=== PATIENT | female | born 1935 | race Caucasian/White ===

== ENCOUNTER 2017-08-29 08:30 | Inpatient (IN) | payer OTHER ==
[2017-08-25 09:23] VITALS: BMI 28.0
--- NOTE | 2017-08-25 10:08 | PAT Medication Instructions ---
Service Date Aug 25, 2017. Current Home Medication List Aspirin (Aspirin Ec), 81 MG PO QPM Biotin (Biotin), 1 CAP PO QAM Cholecalciferol (Vitamin D3), 1 TAB PO QAM Diltiazem Hcl Ext Rel (Tiazac), 120 MG PO HS Fish Oil (Pringle-3), 1 CAP PO BID Hydrocodone-Acetaminophen (Lortab 5-325 mg), 0.5-1 TAB PO PRN PRN for Pain Levothyroxine Sodium (Levothyroxine Sodium), 1 TAB PO QAM Losartan Potassium (Cozaar), 100 MG PO HS Omeprazole (Prilosec), 20 MG PO QAM Probiotic Product (Probiotic), 1 TAB PO BID [Magnesium], 1 TAB PO BID Medication Instructions For Your Scheduled Surgery - Hold the following medications as of 08/26/17: Fish Oil (Pringle-3), 1 CAP PO BID Biotin (Biotin), 1 CAP PO QAM - Hold the following medications 24 hours prior to surgery: Losartan Potassium (Cozaar), 100 MG PO HS - Hold the following medications the morning of surgery: Probiotic Product (Probiotic), 1 TAB PO BID [Magnesium], 1 TAB PO BID Cholecalciferol (Vitamin D3), 1 TAB PO QAM - Take the following medications the morning of surgery with a sip of water OTHERWISE NOTHING TO EAT OR DRINK AFTER MIDNIGHT: Omeprazole (Prilosec), 20 MG PO QAM Levothyroxine Sodium (Levothyroxine Sodium), 1 TAB PO QAM Hydrocodone-Acetaminophen (Lortab 5-325 mg), 0.5-1 TAB PO PRN PRN for Pain (may take if needed up to 4 hours prior to surgery) - Take the following medications as scheduled the night before surgery: Probiotic Product (Probiotic), 1 TAB PO BID [Magnesium], 1 TAB PO BID Diltiazem Hcl Ext Rel (Tiazac), 120 MG PO HS Aspirin (Aspirin Ec), 81 MG PO QPM Hydrocodone-Acetaminophen (Lortab 5-325 mg), 0.5-1 TAB PO PRN PRN for Pain If you have any questions please call us at [phone] or [phone] or [phone]
[2017-08-25 10:56] LABS: BASO % 0.5 %; BASO ABS # 0.03 K/uL (0-0.2); COMPLETE YES; EOS % 2.3 %; HEMATOCRIT 43.4 % (37-47); LYMPH % 25.4 %; LYMPH ABS # 1.44 K/uL (1.2-3.4); MEAN CELL VOLUME 91.6 fL (80-100); MEAN CORPUSCULAR HEMOGLOBIN 30.6 pg (25-34); MEAN CORPUSCULAR HGB CONC 33.4 g/dl (32-36); MEAN PLATELET VOLUME 10.2 fL (7.4-10.4); MONO % 10.1 %; NEUT % 61.7 %; PLATELET COUNT 181 K/uL (130-400); RED BLOOD COUNT 4.74 M/uL (4.2-5.4); WHITE BLOOD COUNT 5.66 K/uL (4.8-10.8)
[2017-08-25 11:17] LABS: ESTIMATED AVERAGE GLUCOSE 111 mg/dl; HA1C FLAG Normal (Normal)
[2017-08-29] VITALS (7 sets, daily range): BP systolic 116–182; BP diastolic 60–92; PULSE 53–70; TEMP 36.4–36.6; O2SAT 97–100; Ht 165.1 cm; Wt 77.1 kg
[~2017-08-29] VITALS: Ht 165.1 cm; Wt 77.1 kg
[~2017-08-29 08:30] MED LIST: ASPI81TA28 PO; BIOT1CAP3 PO; BUPIVACAINE 0.5 % 5 MG/1 ML PF 10ML VIAL ONE; CLINDAMYCIN 600 MG/54 ML D5W IV SCH; DILT120C68 PO; EpHEDrine SULFATE 50MG/5ML SYR ONE; FAMOTIDINE 20 MG TAB PO SCH; FENTANYL CITRATE INJ 50 MCG/1 ML 2 ML VIAL ONE; HYDR-4330 PO; LACTATED RINGER'S 1000ML 1,000 ML IV SCH; LACTATED RINGER'S 1000ML 500 ML IV ONE; LEVO88TA3 PO; LIDOCAINE HCL 2% 2 ML VIAL (20MG/ML) ONE; LOSA1TAB38 PO; MAGNESIUM PO; METOCLOPRAMIDE HCL 10 MG TAB PO SCH; MIDAZOLAM HCL 1 MG/ML 2ML VIAL ONE; OMEG10007 PO; PHENYLEPHRINE 100MCG/ML 5ML SYR ONE; PRLSR20 PO; PROB1TAB16 PO; PROPOFOL IV EMULSION 10 MG/ML 20 ML VIAL IV ONE; ROPIVACAINE 0.5% 5 MG/ML 30 ML VIAL ONE; ROPIVACAINE 5MG/ML 30 ML 150 MG, BUPIVACAINE/EPINEPHR 0.5% MPF 30 ML, KETOROLAC TROMETH... INFIL SCH; TRANEXAMIC ACID INJ 1,000 MG in SODIUM CHLORIDE 0.9% 100ML 100 ML IV SCH; VTMD1000 PO
[2017-08-29] MEDS ORDERED: NITR-5 PO (09:02)
--- NOTE | 2017-08-29 09:41 | History and Physical ---
History & Physical Documentation Date Aug 29, 2017. Chief Complaint Right knee pain HPI (Knee Pain) Pain Location: Anterior knee, Posterior knee, Medial knee Duration: Years Adversely Affecting: ADL's, Recreation Symptoms Include: + Pain, + other symptom (grinding sensations) History of Injury/Trauma: Yes (pt fell onto her knee years ago causing small avulsion type fx's/loose bodies) Additional Notes: Patient is an 81 or white female who states that she has been doing with her arthritis pain medication in the right knee for many years now. She states that she had fallen on her knee some time ago where she developed what sounds like some is a bulging type fractures that turned into loose bodies that occasionally give her problems. This continued to develop into further arthritis and she has been treated conservatively over the years however this is no longer working. The arthritis pain is affecting her daily activities and being able to do the things she would like to do with her family. She's been seeing Dr. Sanders and now that the pain has progressively worsened, and plans are for total knee arthroplasty. Past Medical/Surgical History Past medical history: Prinzmetal angina fibromyalgia, irritable bowel syndrome, skin carcinoma in the past, internal hemorrhoids, duodenal ulcer approximately 50 years ago, hypothyroidism, TIA approximately 30 years ago, atrial fibrillation 2 years ago without recurrence. Denies history of DVT or pulmonary was in the past. Past surgical history: Hysterectomy, cholecystectomy, her catheterization, bilateral total hip arthroplasties, appendectomy, cataract removal, Additional History Hepatic Disease: No Endocrine Disorder: Yes Kidney Disease: No Hypertension: Yes Bleeding Tendencies: No Infectious Diseases: No Family History Mother is with history of Parkinson's disease. Father is with history of cancer Social History Smoking Status: Never Smoker Alcohol Use: occasionally Marital Status: Allergies Coded Allergies: Sulfa Antibiotics (Verified Allergy, Intermediate, HIVES, 08/29/17) Cephalosporins (Verified Allergy, Unknown, HIVES, 08/29/17) Cortisone (Verified Allergy, Unknown, ELEVATED BP, BLOOD SUGAR FACE FLUSHED, 08/29/17) Erythromycin (Verified Allergy, Unknown, itching, 08/29/17) Penicillins (Verified Allergy, Unknown, HIVES, 08/29/17) Procaine (Verified Adverse Reaction, Unknown, tachycardia, 08/29/17) at dental office; unsure if with or without epinephrine Home Medications Scheduled Aspirin (Aspirin Ec), 81 MG PO QPM Biotin (Biotin), 1 CAP PO QAM Cholecalciferol (Vitamin D3), 1 TAB PO QAM Diltiazem Hcl Ext Rel (Tiazac), 120 MG PO HS Fish Oil (Browning-3), 1 CAP PO BID Levothyroxine Sodium (Levothyroxine Sodium), 1 TAB PO QAM Losartan Potassium (Cozaar), 100 MG PO HS Nitrofurantoin Monohyd Macrocr (Macrobid), 100 MG PO BID Omeprazole (Prilosec), 20 MG PO QAM Probiotic Product (Probiotic), 1 TAB PO BID [Magnesium], 1 TAB PO BID Scheduled PRN Hydrocodone-Acetaminophen (Lortab 5-325 mg), 0.5-1 TAB PO PRN PRN for Pain Review of Systems No recent fevers, chills, night sweats, unexplained weight loss, weight gain, no flu or cold-like symptoms, no increased cough or sputum production, no shortness of breath at rest or on exertion, no chest pain, chest pressure, recent irregular heartbeat. History of bleeding from the rectum due to internal hemorrhoids. No history of hematemesis no history of hematuria, pyuria , dysuria, renal calculi. Positive history of TIA in the past. No history of CVA or seizure disorder or migraine headache Physical Exam Addiitonal Comments: Physical exam: Patient is a well-developed, well-nourished, white female, alert and oriented 3, in no acute distress. Skin: Warm and dry HEENT: Head is normocephalic and atraumatic, there is no scleral icterus or injection, nasal airways patent, oral mucosa is pink and moist, Neck: Supple without adenopathy Heart: Regular rate and rhythm Lungs: Clear to auscultation Abdomen: Soft round and nontender. Bowel sounds are present and active 4 Genitalia and rectum: Not performed Extremities: On examination the patient's right knee, she has approximately a 5 flexion contracture. She can flex the knee to approximate 90 with crepitus and mild discomfort. She has no discomfort with range of motion of the right lower extremity including the hip and the ankle and toes. Left lower extremity is essentially within normal limits without any limited range of motion at this time with the hip ,knee and ankle. Upper extremities are essentially within normal limits this time as far as range of motion and are nontender at the shoulders elbows and wrists. She denies low back pain and/or thoracic back pain at this time. He denies cervical pain and has good range of motion of her neck. There are no gross motor or sensory deficits seen at this time. Diagnosis & Plan Diagnosis & Plan (1) Osteoathritis right knee Plan: TKA
[2017-08-29] MEDS ORDERED: POVIDONE-IODINE OP SOLN 30 ML BTL ONE (09:58)
[2017-08-29] MEDS ORDERED: BACITRACIN 50000 UNIT VIAL ONE (09:58)
[2017-08-29] MEDS ORDERED: ORTHO JOINT ANESTHETIC ONE ×2 (10:12→10:56)
--- NOTE | 2017-08-29 10:21 | History & Physical Bridge Note ---
H&P Re-Evaluation Bridge Note: I have examined the patient, reviewed the History & Physical and in the interval since the performance of the History & Physical I have noted the following changes of clinical significance: No changes noted Right tka
[2017-08-29] MEDS ORDERED: EpHEDrine SULFATE INJ 50 MG/ML AMP ONE (11:15)
--- NOTE | 2017-08-29 11:44 | [facility] Post Operative Brief Note ---
Immediate Operative Summary Operative Date Aug 29, 2017. Pre-Operative Diagnosis Osteoathritis right knee Post-Operative Diagnosis Same as preoperative Procedure(s) Performed Right Total Knee Arthroplasty Surgeon Dr. Emre Sanders Electrical Engineering Director Surgeon(s) Anayeli Mccormack PA-C Estimated Blood Loss 10mL Findings severe OA Specimens A. Right Knee Bone and Tissue Complication(s) None Disposition Recovery Room / PACU
[2017-08-29] MEDS ORDERED: DiphenhydrAMINE HCL 50 MG/ML VIAL IV PRN (12:15)
[2017-08-29] MEDS ORDERED: ONDANSETRON INJ 2 MG/ML 2 ML VIAL IV PRN ×2 (12:15→12:30)
[2017-08-29] MEDS ORDERED: MoRPHine SULFATE 2 MG/ML CARP IV PRN (12:15)
[2017-08-29] MEDS ORDERED: ACETAMINOPHEN 500 MG TAB PO SCH (12:15)
[2017-08-29] MEDS ORDERED: SOD PHOSPHATE/SOD BIPHOSPHATE ENEMA 132 ML BTL PR PRN (12:15)
[2017-08-29] MEDS ORDERED: ZOLPIDEM TARTRATE 5 MG TAB PO PRN (12:15)
[2017-08-29] MEDS ORDERED: MAGNESIUM HYDROXIDE SUSP 30 ML UDC PO PRN (12:15)
[2017-08-29] MEDS ORDERED: BISACODYL 10 MG SUPP PR PRN (12:15)
[2017-08-29] MEDS ORDERED: HYDROmorphone INJ 2 MG/ML SYR/VIAL IV PRN (12:30)
[2017-08-29] MEDS ORDERED: PHENYLEPHRINE 100MCG/ML 5ML SYR IV PRN (12:30)
[2017-08-29] MEDS ORDERED: ATROPINE SULFATE 0.1 MG/ML 5ML SYR IV PRN (12:30)
[2017-08-29] MEDS ORDERED: EpHEDrine SULFATE INJ 50 MG/ML AMP IV PRN (12:30)
--- NOTE | 2017-08-29 12:30 | Anesthesiology Progress Note ---
Anesthesia Post Op Note Date & Time Aug 29, 2017 at 12:29 Vital Signs Pain Intensity: 0 Vital Signs Past 12 Hours Date Time Temp Pulse Resp B/P (MAP) Pulse Ox O2 Delivery O2 Flow Rate FiO2 08/29/17 12:20 68 16 133/62 100 Oxymask 10 08/29/17 12:10 69 16 130/57 100 Oxymask 10 08/29/17 12:01 36.0 70 16 128/55 100 Oxymask 10 08/29/17 09:07 36.6 66 20 182/92 99 Room Air Notes Mental Status: alert / awake / arousable, participated in evaluation Pt Amnestic to Procedure: Yes Nausea / Vomiting: adequately controlled Pain: adequately controlled Airway Patency, RR, SpO2: stable & adequate BP & HR: stable & adequate Hydration State: stable & adequate Anesthetic Complications: no major complications apparent
--- NOTE | 2017-08-29 12:46 | DIAGNOSTIC IMAGING REPORT ---
RIGHT KNEE 2 VIEWS History: Right total knee arthroplasty. Degenerative arthritis. Postop. FINDINGS: The patient is status post a right total knee arthroplasty. The hardware is intact. No fracture or dislocation. Surgical drains are in place. IMPRESSION: Right total knee arthroplasty. No evidence for hardware complication. Electronically signed by: Adam Ramos M.D. 08/29/2017 12:45 PM Dictated Date/Time: 08/29/2017 12:42 PM
[2017-08-29] MEDS: D5W AND 1/2NSS + 20MEQ KCL 1,000 ML IV SCH ×2 (13:44→23:43)
[2017-08-29] MEDS ORDERED: INFLUENZA VACCINE HIGH DOSE 65+ 0.5 ML SYR IM. ONE (14:15)
[2017-08-29] MEDS ORDERED: PNEUMOCOCCAL POLYSACCHARIDES 25 MCG/0.5 ML VIAL/SYR IM. ONE (14:15)
[2017-08-29] MEDS ORDERED: PNEUMOCOCCAL ADMINISTRATION CHARGE ONE (14:15)
[2017-08-29] MEDS ORDERED: INFLUENZA ADMINISTRATION CHARGE ONE (14:15)
[2017-08-29] MEDS: KETOROLAC TROMETHAMINE 15 MG/ML VIAL IV. SCH ×2 (14:17→19:48)
--- NOTE | 2017-08-29 15:36 | OPERATIVE REPORT ---
DATE OF OPERATION: 08/29/2017 PREOPERATIVE DIAGNOSIS: Osteoarthritis, right knee. POSTOPERATIVE DIAGNOSIS: Osteoarthritis, right knee. PROCEDURE: Right total knee arthroplasty. SURGEON: Dr. Sanders. POWERHOUSE ATTENDANT: EVELYN Mccormack. ANESTHESIA: Spinal. COMPLICATIONS: None. IMPLANTS USED: Femoral size 4, tibia size 3, tibial poly 9, patella size 36. CONDITION: Recovery room stable. OPERATION AND FINDINGS: Following induction of spinal anesthesia, the patient's right leg was prepped and draped in the usual sterile manner. Limb was exsanguinated with an Esmarch bandage and tourniquet was inflated to 350 mmHg. A longitudinal incision was made anteriorly. Subcutaneous tissue was sharply dissected. Electrocautery was used for hemostasis. Prepatellar bursa was incised and median parapatellar incision was performed. Patella was everted and the knee was flexed. Fat pad was removed to aid in visualization and the anterior and posterior cruciate ligaments were removed. The medial face of the tibia was cleared of soft tissue first with a Bovie and a Robsion elevator. This tissue was retracted posteriorly using a blunt Hohmann. A Bahena retractor was used to expose the synovium above on the anterior aspect of the femur and this was removed down to bone. The PSI guide was placed on the distal femur and two pins were placed anteriorly and kept in position and two additional pins were placed distally and removed. The distal femoral cutting block was placed in position and the distal femoral cut was used in the +0 setting. Next, the cutting block was removed and the spinal block was placed in the distal end of the femur. Care was taken to ensure appropriate external rotation and feeler gauge was used to ensure no notching would occur. The femoral block was centered on the distal femur and in the medial and lateral direction and was fixed using two bone screws. The gold pins were then removed. The oscillating saw was used to create the bone cuts and the distal femoral cutting block was removed and the reciprocating saw was used to further trim the femoral cuts as well as a deep in the area for the trochlear groove. Next, posterior condyle remnants were removed. Following this, a meniscal clamp and knife were utilized to remove the anterior portion of both medial and lateral meniscus. The proximal tibia PSI guide was placed into position and the proximal tibial cutting guide was screwed into position. The extra medullary alignment guide was utilized to ensure appropriate alignment. The proximal tibia was cut and the proximal tibial cutting block was removed and this bone fragment was removed. The appropriate guide was used to perform the notch cut on the distal femur and a lamina concept artist and a cochlear knife were utilized to finish both medial and lateral meniscectomies to remove any remnants of the posterior or anterior cruciate ligaments. Following this, the distal femoral component was impacted into position and blunt Neeta was used to sublux the tibia anteriorly. The proximal tibia was sized and a ____ tibial tray was chosen as the size to be used. This was put into position and appropriate external rotation and a double check with extramedullary alignment guide was performed. The canal for the tibial stem was prepared first with a 17 mm drill and then the punch and a mallet and the trial tibial poly was placed. A ____ was chosen the size to be used. It was brought to extension and the patella was prepared with the patellar reamer. A ____ component was chosen the size to be used. The trial component was placed and knee was taken through a full range of motion and there was found to be no lateral subluxation of the tibia. No lateral release was required. The trials were all removed. The final components were obtained and assembled. Cement was mixed. The knee was thoroughly irrigated and the ortho mix was injected about the knee joint. The final components were cemented into position. After thoroughly suctioning and drying the bone ends, all excess cement was removed. The knee was held in extension while the cement hardened. The wound was irrigated and closed over a Hemovac drain. #1 Vicryl was used to close the extensor mechanism. Subcutaneous tissues closed using 0 Dexon. Skin was closed with molly. Sterile dressing of Adaptic, 4 x 4's, sterile Webril, and Vinod was applied. The patient tolerated the procedure well. Due to the complex nature of the procedure, the entire surgery was performed with the operational assistance of EVELYN Mccormack. The stonecutter assistant, under direct supervision, was involved in the actual performance of all aspects of the surgical procedure including hemostasis, tissue retraction and incision, instrument management, patient positioning, and wound closure. I attest to the content of the Intraoperative Record and any orders documented therein. Any exception s are noted below.
[2017-08-29] MEDS: ACETAMINOPHEN 500 MG TAB PO SCH ×2 (16:28→21:19)
[2017-08-29] MEDS: OXYCODONE HCL IR 5 MG TAB (IMMEDIATE RELEASE) PO PRN ×2 (16:31→23:44)
[2017-08-29] MEDS: CLINDAMYCIN IV 600 MG in DEXTROSE 5% 50ML 50 ML IV SCH (18:25)
[2017-08-29] MEDS: LOSARTAN POTASSIUM 50 MG TAB PO SCH (21:19)
[2017-08-29] MEDS: ASPIRIN 81 MG ECTAB PO SCH (21:19)
[2017-08-29] MEDS: SENNA 8.6 MG TAB PO SCH (21:19)
[2017-08-29] MEDS: DILTIAZEM HCL 120 MG EXT REL CAP PO SCH (21:19)
[2017-08-29] MEDS: NITROFURANTOIN MONOHYDRATE 100 MG CAP PO SCH (21:20)
[2017-08-30] MEDS: CLINDAMYCIN IV 600 MG in DEXTROSE 5% 50ML 50 ML IV SCH (02:15)
[2017-08-30] MEDS: KETOROLAC TROMETHAMINE 15 MG/ML VIAL IV. SCH ×2 (02:15→08:30)
[2017-08-30 04:15] VITALS: BP 106/54; PULSE 50; TEMP 36.5; O2SAT 95
[2017-08-30] MEDS: LEVOTHYROXINE 88 MCG TAB PO SCH (06:16)
[2017-08-30] MEDS: ACETAMINOPHEN 500 MG TAB PO SCH ×3 (06:16→20:22)
[2017-08-30 06:33] LABS: HEMATOCRIT 39.6 % (37-47); MEAN CELL VOLUME 93.8 fL (80-100); MEAN CORPUSCULAR HEMOGLOBIN 28.7 pg (25-34); MEAN CORPUSCULAR HGB CONC 30.6 g/dl (32-36); MEAN PLATELET VOLUME 10.3 fL (7.4-10.4); PLATELET COUNT 134 K/uL (130-400); RED BLOOD COUNT 4.22 M/uL (4.2-5.4)
[2017-08-30 07:09] LABS: BUN/CREATININE RATIO 14.4 (10-20); CALCIUM 8.4 mg/dl (8.5-10.1); CREATININE 1.1 mg/dl (0.60-1.20); POTASSIUM 4.4 mmol/L (3.5-5.1)
[2017-08-30 07:12] VITALS: BP 117/66; PULSE 48; TEMP 36.8; O2SAT 97
--- NOTE | 2017-08-30 08:10 | Orthopedic Progress Note ---
Orthopedic Progress Note Date of Service Aug 30, 2017. Subjective Post OP Day: 1 Reports: feeling well, Denies: chest pain, SOB, nausea / vomiting, light headedness, calf pain Objective calves soft nontender, dressing C/D/I, A&O x3 Pt does have moderate weakness in the right foot. Unable to to dorsiflex the foot at this time. Able to plantar flex. Date Time Temp Pulse Resp B/P (MAP) Pulse Ox O2 Delivery O2 Flow Rate FiO2 08/30/17 07:12 36.8 48 16 117/66 (83) 97 Room Air 08/30/17 04:15 36.5 50 16 106/54 (71) 95 Room Air 08/29/17 23:40 Room Air 08/29/17 23:30 36.5 54 16 123/66 (85) 99 Room Air 08/29/17 20:10 36.4 53 16 122/60 (80) 97 Room Air 08/29/17 15:57 36.4 55 18 116/63 (80) 99 Room Air 08/29/17 14:57 36.4 53 18 129/67 (87) 100 Nasal Cannula 3.0 08/29/17 13:59 61 16 128/68 (88) 100 Nasal Cannula 2.0 08/29/17 13:00 99 Nasal Cannula 2.0 08/29/17 13:00 36.5 70 16 134/69 (90) 99 Nasal Cannula 2.0 08/29/17 13:00 99 Nasal Cannula 2.0 08/29/17 12:40 36.4 67 16 133/63 100 Nasal Cannula 2 08/29/17 12:30 36.4 68 16 135/64 100 Nasal Cannula 2 08/29/17 12:20 68 16 133/62 100 Oxymask 10 08/29/17 12:10 69 16 130/57 100 Oxymask 10 08/29/17 12:01 36.0 70 16 128/55 100 Oxymask 10 08/29/17 09:07 36.6 66 20 182/92 99 Room Air Laboratory Results 24 Hours: Test 08/30/17 05:55 Hematocrit 39.6 % Hemoglobin 12.1 g/dL Assessment & Plan Assessment: Right TKA right foot drop likely due to intra op injection Plan: PT/OT Planning for [facility] upon dc ADDENDUM 12:30PM; REVISITED PATIENT TODAY TO CHECK ON HER FOOT DROP. PT NOW ABLE TO DORSIFLEX FOOT COMPARED TO THIS AM. CONTINUE PRESENT PLAN. Inhouse Planning Pain Management: Toradol, Ultram, Morphine, PO Tylenol, Oxy IR DVT Prophylaxis: TEDs, SCDs, ASA Discharge Planning Discharge Planning: correction facility
[2017-08-30] MEDS: ASPIRIN 81 MG ECTAB PO SCH ×2 (08:30→20:19)
[2017-08-30] MEDS: NITROFURANTOIN MONOHYDRATE 100 MG CAP PO SCH ×2 (08:31→20:20)
[2017-08-30] MEDS: MULTIVITAMIN TAB PO SCH (08:32)
[2017-08-30] MEDS: CHOLECALCIFEROL 1000 INTER.UNIT TAB PO SCH (08:32)
[2017-08-30] MEDS: PANTOprazole SOD 40 MG TAB PO SCH (08:32)
[2017-08-30] MEDS: D5W AND 1/2NSS + 20MEQ KCL 1,000 ML IV SCH (08:33)
--- NOTE | 2017-08-30 10:42 | Anesthesiology Progress Note ---
Anesthesia Post Op Note Date & Time Aug 30, 2017 at 10:42 Vital Signs Pain Intensity: 5.0 Vital Signs Past 12 Hours Date Time Temp Pulse Resp B/P (MAP) Pulse Ox O2 Delivery O2 Flow Rate FiO2 08/30/17 08:19 Room Air 08/30/17 07:12 36.8 48 16 117/66 (83) 97 Room Air 08/30/17 04:15 36.5 50 16 106/54 (71) 95 Room Air 08/29/17 23:40 Room Air 08/29/17 23:30 36.5 54 16 123/66 (85) 99 Room Air Notes Mental Status: alert / awake / arousable, participated in evaluation Pt Amnestic to Procedure: Yes Nausea / Vomiting: adequately controlled Pain: adequately controlled Airway Patency, RR, SpO2: stable & adequate BP & HR: stable & adequate Hydration State: stable & adequate Neuraxial Anesthesia: was administered, sensory block resolved Anesthetic Complications: no major complications apparent
[2017-08-30 11:08] VITALS: BP 117/58; PULSE 52; O2SAT 97
[2017-08-30] MEDS: OXYCODONE HCL IR 5 MG TAB (IMMEDIATE RELEASE) PO PRN ×3 (11:08→20:26)
[2017-08-30 11:46] VITALS: BP 108/66; PULSE 51; TEMP 36.5; O2SAT 98
--- NOTE | 2017-08-30 13:34 | Discharge Instructions ---
Discharge Instructions Date of Service Aug 30, 2017. Admission Reason for Admission: Right Knee Osteoarthritis Discharge Discharge Diagnosis / Problem: Right Knee Osteoarthritis Discharge Goals Goal(s): Decrease discomfort, Improve function Activity Recommendations Activity Level: Assistance Required Therapies: Physical Therapy (TKA protocol), Occupational Therapy (ADL's and transfers) Weightbearing Status: Right weightbearing (as tolerated) . Additional Information Patient informed of condition: Yes Advance Directives: Yes DNR: No Level of Care: Skilled Communicable Disease: No Prognosis: Stable Rizvi Catheter: No Instructions / Follow-Up Instructions / Follow-Up ACTIVITY RECOMMENDATIONS: SELF CARE INSTRUCTIONS AFTER TOTAL KNEE REPLACEMENT A. You may need to continue a physical therapy program after discharge from the hospital. There are several options available to you. Your doctor will assist you in selecting the best one for you. 1. An out-patient facility 2 to 3 times a week for therapy or home therapy. 2. Continue working on all exercises taught to you in the hospital. Your goals should be to increase bending of your knee to 90 degrees and beyond and to fully straighten your knee. B. You may progress at your own pace from walking with a walker or crutches to a cane; then to no assistive devices. C. Make walking a part of your daily routine. Be up as much as comfortable with rest periods throughout the day. Rest with leg elevation is very important. Use the ice wrap frequently for the first 3-4 weeks. D. There are no restrictions on activities. You may ride in a car, shop, participate in line operator and all social activities. E. Wear the long elastic stockings (CARLENE hose) 20 hours a day for 2 weeks after surgery. They can be removed several times a day for laundering and for a bath. F. You may shower, no tub baths until cleared by your doctor. SPECIAL CARE INSTRUCTIONS: VERY IMPORTANT TO READ AND REVIEW A. There are a few signs you need to watch for after you are home. Call [facility] if you notice any of the followin. Increased severe knee pain. Some pain is expected especially when you exercise. 2. Increased swelling in your leg or knee; pain or swelling of the calf muscle in either lower leg. 3. Any fluid drainage from the incision. 4. Shortness of breath or chest pain. B. Please call [facility] at if you have any concerns or questions about your operation or recovery. The doctor or his nurse will return your call promptly. C. You must take antibiotics before dental work, bladder, bowel or other surgery. Your doctor will provide you with a permanent care to carry describing this precaution. IMPORTANT: * REMEMBER TO TAKE ASPIRIN, 81 MG, TWICE DAILY FOR 4 WEEKS UNLESS OTHERWISE DIRECTED. THIS IS YOUR BLOOD THINNER. * HIGH RISK PATIENTS MAY BE PRESCRIBED A STRONGER BLOOD THINNER. THIS WILL BE PROVIDED AT DISCHARGE. * CALL IF INCREASED PAIN, REDNESS, DRAINAGE OR FEVER GREATER THAT 101. * WEAR CARLENE HOSE 20 HOURS PER DAY FOR 2 WEEKS. * Silverlon- This is a large adhesive bandage that contains silver ions. This helps your incision heal by fighting off bacteria and protecting it from the outside environment. You are permitted to shower with this dressing. This will remain on your incision for 7 days and then should be removed. Some visible blood or drainage through the dressing window is normal. If there is significant drainage or leaking noted before the 7 days notify your doctor's office immediately. Once removed, keep incision clean and dry. If there is any drainage or redness noted, please call your surgeon. You also have the zip closure system on your wound. This will remain on for 14 days. You will receive instructions for this from the nursing staff. If you are having minimal drainage, you may shower but do not soak the wound. No tub baths. Pat dry. Keep a dressing over the zip closure until seen back in the office. . FOLLOW UP VISIT: If appointment is not already scheduled: Please call [facility] to make a follow-up appointment for 2 weeks after your surgery at . Current Hospital Diet Patient's current hospital diet: Regular Diet Discharge Diet Recommended Diet: Regular Diet Procedures Procedures Performed: Right Total Knee Arthroplasty Pending Studies Studies pending at discharge: no Physician Orders On Transfer Dressing Changes: See Silverlon dressing instructions / Zip Closure instructions above. Silverlon dressing should be removed gently on 09/05/17. Zip closure system remains on for a total of 14 days. Vital Signs: routine Laboratory Results Hemoglobin A1c Test 08/25/17 10:20 Range/Units Estimated Average Glucose 111 mg/dl Hemoglobin A1c 5.5 4.5-5.6 % Medical Emergencies . Who to Call and When: Medical Emergencies: If at any time you feel your situation is an emergency, please call 911 immediately. . Non-Emergent Contact Non-Emergency issues call your: Surgeon Call Non-Emergent contact if: temperature is above 101.5, your pain is not controlled, your pain is worsening, wound has increased drainage, wound has increased redness . . "Provider Documentation" section prepared by Peter [place]. . Core Measure Problem Core Measures: None [place] Drug Monitoring Program Search Results: patient reviewed within database, see additional documentation Drug Monitoring Findings: Pt recieving Hydrocodone from in [place]. Last RX was 08/22/17 for 13 days. Pt will need to return to this facility at a later time to continue pain contract if needed.
[2017-08-30] MEDS ORDERED: ACETAMINOPHEN 500 MG TAB PO ONE (13:54)
[2017-08-30 15:01] VITALS: BP 148/71; PULSE 67; TEMP 36.5; O2SAT 97
[2017-08-30] MEDS: SENNA 8.6 MG TAB PO SCH (20:19)
[2017-08-30] MEDS: LOSARTAN POTASSIUM 50 MG TAB PO SCH (20:19)
[2017-08-30] MEDS: DILTIAZEM HCL 120 MG EXT REL CAP PO SCH (20:20)
[2017-08-30 23:15] VITALS: BP 157/74; PULSE 71; TEMP 36.9; O2SAT 98
[2017-08-31] MEDS: OXYCODONE HCL IR 5 MG TAB (IMMEDIATE RELEASE) PO PRN ×4 (03:23→21:50)
[2017-08-31] MEDS: LEVOTHYROXINE 88 MCG TAB PO SCH (05:37)
[2017-08-31] MEDS: ACETAMINOPHEN 500 MG TAB PO SCH ×3 (05:37→21:48)
[2017-08-31 07:35] VITALS: BP 147/64; PULSE 66; TEMP 36.8; O2SAT 95
--- NOTE | 2017-08-31 08:35 | Orthopedic Progress Note ---
Orthopedic Progress Note Date of Service Aug 31, 2017. Subjective Post OP Day: 2 Reports: feeling well, Denies: chest pain, SOB, nausea / vomiting, light headedness, calf pain Additional Notes: FOOT DROP RESOLVED Objective calves soft nontender, N/V intact (FULL DORSI/PLANTAR FLEXION), capillary refill less than 2 sec., dressing C/D/I (silverlon), A&O x3, toes mobile Date Time Temp Pulse Resp B/P (MAP) Pulse Ox O2 Delivery O2 Flow Rate FiO2 08/31/17 07:35 36.8 66 16 147/64 (91) 95 Room Air 08/30/17 23:18 Room Air 08/30/17 23:15 36.9 71 16 157/74 (101) 98 Room Air 08/30/17 15:20 Room Air 08/30/17 15:01 36.5 67 16 148/71 (96) 97 Room Air 08/30/17 11:46 36.5 51 16 108/66 (80) 98 Room Air 08/30/17 11:08 52 97 Assessment & Plan Assessment: POD#2 sp Right TKA Plan: PT/OT Planning for [facility] upon dc. BED AVAILABLE TUESDAY Inhouse Planning Pain Management: Toradol, Ultram, Morphine, PO Tylenol, Oxy IR DVT Prophylaxis: TEDs, SCDs, ASA Discharge Planning Discharge Planning: jail facility
[2017-08-31] MEDS: PANTOprazole SOD 40 MG TAB PO SCH (08:56)
[2017-08-31] MEDS: NITROFURANTOIN MONOHYDRATE 100 MG CAP PO SCH ×2 (08:56→21:47)
[2017-08-31] MEDS: MULTIVITAMIN TAB PO SCH (08:56)
[2017-08-31] MEDS: ASPIRIN 81 MG ECTAB PO SCH ×2 (08:57→21:47)
[2017-08-31] MEDS: CHOLECALCIFEROL 1000 INTER.UNIT TAB PO SCH (08:57)
[2017-08-31 15:19] VITALS: BP 149/67; PULSE 64; TEMP 37.1; O2SAT 97
[2017-08-31] MEDS: SENNA 8.6 MG TAB PO SCH (21:47)
[2017-08-31] MEDS: DILTIAZEM HCL 120 MG EXT REL CAP PO SCH (21:49)
[2017-08-31] MEDS: LOSARTAN POTASSIUM 50 MG TAB PO SCH (21:49)
[2017-08-31 23:06] VITALS: BP 157/73; PULSE 75; TEMP 37; O2SAT 96
[2017-09-01] MEDS: ACETAMINOPHEN 500 MG TAB PO SCH ×2 (06:00→12:48)
[2017-09-01] MEDS: LEVOTHYROXINE 88 MCG TAB PO SCH (06:10)
[2017-09-01] MEDS: OXYCODONE HCL IR 5 MG TAB (IMMEDIATE RELEASE) PO PRN ×2 (06:11→14:25)
[2017-09-01 06:59] VITALS: BP 140/69; PULSE 65; TEMP 36.7; O2SAT 95
--- NOTE | 2017-09-01 07:16 | Orthopedic Progress Note ---
Orthopedic Progress Note Date of Service Sep 01, 2017. Subjective Post OP Day: 3 Reports: feeling well, complaints (Low back pain this AM) Additional Notes: c/o low back pain this AM. Denies radiculopathy. As she describes it, it sounds like sacral in origin. Discussed it may be due to being less ambulatory currently and more time in a less than comfortable bed. No other complaints. Objective calves soft nontender, N/V intact, dressing C/D/I, A&O x3, toes mobile Date Time Temp Pulse Resp B/P (MAP) Pulse Ox O2 Delivery O2 Flow Rate FiO2 09/01/17 06:59 36.7 65 18 140/69 (92) 95 Room Air 09/01/17 00:32 Room Air 08/31/17 23:06 37.0 75 16 157/73 (101) 96 Room Air 08/31/17 15:45 Room Air 08/31/17 15:19 37.1 64 16 149/67 (94) 97 Room Air 08/31/17 08:00 Room Air 08/31/17 07:35 36.8 66 16 147/64 (91) 95 Room Air Assessment & Plan Assessment: POD#3 sp Right TKA Low back pain Plan: PT/OT Will discuss with Dr Sanders about current LBP. Planning for [facility] upon dc. BED AVAILABLE TUESDAY if insurance auth approved. Inhouse Planning Pain Management: Morphine, PO Tylenol, Oxy IR DVT Prophylaxis: TEDs, SCDs, ASA Discharge Planning Discharge Planning: [facility] facility
[2017-09-01] MEDS: NITROFURANTOIN MONOHYDRATE 100 MG CAP PO SCH (09:38)
[2017-09-01] MEDS: PANTOprazole SOD 40 MG TAB PO SCH (09:38)
[2017-09-01] MEDS: MULTIVITAMIN TAB PO SCH (09:38)
[2017-09-01] MEDS: CHOLECALCIFEROL 1000 INTER.UNIT TAB PO SCH (09:38)
[2017-09-01] MEDS: ASPIRIN 81 MG ECTAB PO SCH (09:39)
[2017-09-01 15:04] VITALS: BP 163/69; PULSE 71; TEMP 36.7; O2SAT 96
[2017-09-01] MEDS ORDERED: RXC5 PO (15:13)
[2017-09-01] MEDS ORDERED: ACET-24 PO (15:13)
[2017-09-01] MEDS ORDERED: ASPEC81 PO (15:13)
--- NOTE | 2017-09-05 12:52 | DISCHARGE SUMMARY ---
DISCHARGE DIAGNOSIS: Degenerative joint disease, right knee. SECONDARY DIAGNOSIS: None. CONSULTS: None. COMPLICATIONS: None. PROCEDURE: The patient underwent a right total knee arthroplasty with Dr. Sanders on 08/29/2017. BRIEF HISTORY: Please see previously dictated history and physical. HOSPITAL SUMMARY: The patient was admitted on the above day for the above procedure. Procedure went without complication. Postop day 1, the patient was feeling well without complaints. She denied chest pain or shortness of breath. Vital signs were stable. She was afebrile. Dressing was clean, dry and intact. She was neurovascularly intact. Calves were soft and nontender. Hemoglobin was 12.1. The patient began physical therapy per protocol. She did have a slight footdrop which was likely due to her intra-articular injection. This was resolved by afternoon. Postop day 2, the patient was improving; footdrop completely resolved. Vital signs were stable. She was afebrile. Dressing was clean, dry and intact. She was neurovascularly intact. Calves were soft and nontender. The patient continued to progress with physical therapy. The patient was referred to [facility]. Postop day #3 the patient complaining of some mild low back pain. She denies any radiculopathy, mostly in the sacral region. Vital signs were stable. She was afebrile. Dressing was clean, dry and intact. She was neurovascularly intact. Calves were soft and nontender. She had some right-sided SI joint tenderness. The patient was accepted at [facility]. She was transferred later that day in stable condition. For further review please see the chart. Lab, x-ray data and discharge instructions as per chart. [facility]
== END 2017-09-01 16:00 | DRG 470 ==
LOC: C.ACU 08:30 → C.3E 09:30 → ENRESERV 12:46
PROC: 0SRC0J9 Replacement of Right Knee Joint with Synthetic Substitute, Cemented, Open Approach (ICD-10-PCS; principal; 2017-08-29 10:15)
DX: M17.11 Unilateral primary osteoarthritis, right knee (principal); E03.9 Hypothyroidism, unspecified; Z79.899 Other long term (current) drug therapy; Z79.82 Long term (current) use of aspirin; Z86.73 Personal history of transient ischemic attack (TIA), and cerebral infarction without residual deficits; Z85.828 Personal history of other malignant neoplasm of skin; Z82.0 Family history of epilepsy and other diseases of the nervous system